=== PATIENT | male | born 1970 | race Caucasian/White ===

== ENCOUNTER 2024-04-27 10:58 | Day surgery (SDC) | payer BC ==
[2024-04-27] MEDS ORDERED: Lidocaine 1% 30 ML SDV ONE (11:25)
[2024-04-27] MEDS: Lidocaine 1% 30 ML SDV INJECT SCH (12:00)
== END 2024-04-27 12:59 | disposition home or self-care (01) ==
LOC: CC.SDS 10:58
PROVIDERS: ATTEND Family Medicine
DX: I87.2 Venous insufficiency (chronic) (peripheral) (principal); I83.813 Varicose veins of bilateral lower extremities with pain
CPT/HCPCS: C1888; J3490